=== PATIENT | female | born 1985 | race Caucasian/White ===

== ENCOUNTER 2018-01-17 20:55 | Emergency (ER) | payer OTHER ==
[2018-01-17 21:33] VITALS: BP 128/85
--- NOTE | 2018-01-17 21:42 | UC ---
General HPI - HPI Summary HPI Summary: 32 yo female c/o intense pain R ant thigh and groin. Did some new stretching excercises 2 days ago without issue, last night kneeled onto floor and felt intense pain in ant thigh and groin. Pain radiates to medial knee and extends to R low back. [place] a ripping and tearing sensation. Played softball today, while running felt sudden worse pain, rendering unable to run. Better now, but still uncomfortable. No distal p/d/w. No b/b concerns. Ms. Gonzalez is quite athletic, as such this is particularly concerning. - History of Current Complaint Stated Complaint: THIGH,GROIN PAIN Time Seen by Provider: 01/17/18 21:24 Hx Obtained From: Patient - Allergy/Home Medications Allergies/Adverse Reactions: Allergies Allergy/AdvReac Type Severity Reaction Status Date / Time No Known Allergies Allergy Verified 01/17/18 21:33 Home Medications: Home Medications Fluticasone-Salmeterol 100-50* [Advair Diskus 100-50*] 1 puff PO DAILY 01/17/18 [History Confirmed 01/17/18] PMH/Surg Hx/FS Hx/Imm Hx Previously Healthy: Yes - Family History Known Family History: Positive: Unknown - Social History Occupation: Employed Full-time Review of Systems Constitutional: Negative Skin: Negative - no eccymosis Eyes: Negative ENT: Negative Respiratory: Negative Cardiovascular: Negative Gastrointestinal: Negative Genitourinary: Negative Motor: Other - see hpi Neurovascular: Other - see hpi Musculoskeletal: Arthralgia, Myalgia Neurological: Negative Psychological: Negative Is Patient Immunocompromised?: No All Other Systems Reviewed And Are Negative: Yes Physical Exam Triage Information Reviewed: Yes Appearance: Well-Nourished Vital Signs Reviewed: Yes Eye Exam: Normal - grossly normal ENT Exam: Normal - grossly normal Neck exam: Normal - no c/o Respiratory Exam: Normal - RR normal, no tachypnea, no dyspnea Cardiovascular Exam: Normal - HR normal, nondiaphoretic. Abdominal Exam: Normal - no cvat appreciated Abdomen Description: Positive: Nontender, No Organomegaly Musculoskeletal Exam: Other - Tender medial groin, no point swelling, or fluctuance. Tender medial thigh, int knee rotation mild tender. Subj tender Post hip general, without direct sciatic tenderness. DP/PT 2+. Post knee ok Neurological Exam: Normal Psychological Exam: Normal - conversing easily and appropriately Skin Exam: Normal - no ecchymosis or rash visible or reported Course/Dx - Course Course Of Treatment: XRay R femur - nad. d/w pt results, coa / tx plan. Will benefit from Sports Medicine referral, Ms. Gonzalez expresses willingness for this. Also refer to orthopedic surgeon, this week if possible. Consider sartorius strain, c/n entirely exclude other (including hernia, but unlikely primary). Questions as posed answered to the best of my ability. - Differential Dx - Multi-Symptom Provider Diagnoses: acute muscle strain see above Discharge - Sign-Out/Discharge Documenting (check all that apply): Discharge/Admit/Transfer - Discharge Plan Condition: Stable Disposition: HOME Patient Education Materials: Ibuprofen (By mouth), Muscle Strain (ED) Forms: *Work Release Referrals: Enrique Forman [Medical Doctor] - Glenda Martino MD [Primary Care Provider] - Reese Martins MD [Medical Doctor] - Additional Instructions: Recommend ibuprofen or naproxen (over the counter), at least 2 doses / day x 3 days. Follow up with your primary care physician, per routine. Follow up with Sports Medicine 1 week, if possible. Follow up with Orthopedic doctor - this week. Please seek medical attention for worse or new problems. - Billing Disposition and Condition Condition: STABLE Disposition: Home
--- NOTE | 2018-01-17 22:13 | RAD ---
INDICATION: Right thigh pain. TECHNIQUE: 2 views of the right femur were obtained. FINDINGS: The bones are normal alignment. No fracture is seen. No abnormal calcifications are noted. Joint spaces appear maintained. IMPRESSION: NO EVIDENCE FOR FRACTURE.
== END 2018-01-17 22:25 | disposition home or self-care (01) ==
LOC: UCEAST 20:55
DX: S76.911A Strain of unspecified muscles, fascia and tendons at thigh level, right thigh, initial encounter (principal); X50.9XXA Other and unspecified overexertion or strenuous movements or postures, initial encounter; Y93.64 Activity, baseball; Y92.320 Baseball field as the place of occurrence of the external cause
CPT/HCPCS: 99201; G0463